=== PATIENT | female | born 1945 | race Caucasian/White ===

== ENCOUNTER 2018-12-23 06:08 | Inpatient (IN) ==
--- NOTE | 2018-12-23 06:42 | PROVIDER DOCUMENTATION ---
HPI-General Adult - General Chief Complaint: Generalized Pain Stated Complaint: pain Time Seen by Provider: 12/23/18 06:32 Source: patient Allergies/Adverse Reactions: Patient Allergies Allergy/AdvReac Type Severity Reaction Status Date / Time Sulfa (Sulfonamide Allergy Mild RASH Verified 05/20/15 18:26 Antibiotics) [Sulfa(Sulfonamide Antibiotics)] Home Medications: Home Medication List Medication Instructions Recorded Confirmed Last Taken Type Montelukast [Singulair] 10 mg PO DAILY 04/13/14 09/21/15 09/21/15 05:00 History Clonazepam [Klonopin] 0.5 - 1 tab PO BID PRN PRN 05/20/15 09/21/15 09/21/15 05:00 History 1/2 dose Furosemide [Lasix] 40 mg PO DAILY 05/20/15 09/21/15 09/20/15 05:00 History Potassium Chloride E.r. [Klor-Con] 99 mg PO DAILY 05/20/15 09/21/15 09/21/15 05:00 History Ergocalciferol (Vitamin D2) 50,000 unit PO DIRECTED #0 05/26/15 09/21/15 09/20/15 05:00 Rx [Vitamin D2] Folic Acid 1 mg PO DAILY #0 tablet 05/26/15 09/21/15 09/21/15 05:00 Rx Acetaminophen E.r. [Tylenol 650 mg PO PRN PRN 09/17/15 09/17/15 Unknown History Arthritis] Aclidinium Gilman Inhaler 1 puff INH BID 09/17/15 09/21/15 09/21/15 04:45 History [Tudorza Pressair Inhaler] Albuterol Sulfate [Ventolin Hfa] 18 gm IH PRN PRN 09/17/15 09/17/15 Unknown History Albuterol [Albuterol Neb] 1.25 mg INH 4XDAY 09/17/15 09/21/15 09/21/15 04:45 History Biotin 5 mg PO DAILY 09/17/15 09/21/15 09/21/15 05:00 History Diltiazem HCl [Cartia Xt] 180 mg PO DAILY 09/17/15 09/21/15 09/21/15 05:00 History Iron 325 mg PO DAILY 09/17/15 09/21/15 09/21/15 05:00 History Multivit-Min/FA/Lycopen/Lutein 1 each PO DAILY 09/17/15 09/21/15 09/21/15 05:00 History [Centrum Silver Tablet] Prednisone 5 mg PO QAM 09/17/15 09/21/15 09/21/15 05:00 History Cyanocobalamin (Vitamin B-12) 1,000 mcg IJ DIRECTED 09/21/15 09/21/15 2 Weeks Ago History [Cyanocobalamin Injection] ~09/07/15 - History of Present Illness -Gen Adult Nature of Presenting Problems: arrives via EMS. Pt has had increased aching pain to bilat LE from knees down since yest. She has a hx of arthritis, is on mobic, daily prednisone, and Ultram. She took a dose of Ultram yest pm ~ 1530, but it made her feel light headed. She thinks she may have walked more yest, but no falls nor twists. Daughter says she fell 3 mos ago, has been doing worse since. She has seen Dr Dwyer, Xrays of back, hip, knees are negative, although a measurement of osteoporosis was worse. She did previously see a pants maker, but has stopped that after dx with leukemia, now sees only Dr Zamora. Daughter says weakness in worse, pt does not walk much at all. She had a bedside commode, but past 3 nights has been sleeping in diapers. No fever Location of Pain/Injury: reports: other (see above) Quality of Pain: reports: aching Timing: reports: still present, getting worse Similar Symptoms Previously?: Yes Recently seen or treated by another doctor?: Yes Review of Systems - Adult - REVIEW OF SYSTEMS - ADULT Constitutional: reports: other (increasing weakness) Eyes: reports: no symptoms reported Ears, Nose, Mouth & Throat: reports: no symptoms reported Cardiovascular: reports: no symptoms reported Respiratory: reports: no symptoms reported Gastrointestinal: reports: no symptoms reported Genitourinary: reports: no symptoms reported Musculoskeletal: reports: see HPI Integumentary: reports: no symptoms reported Neurological: reports: no symptoms reported Psychiatric: reports: no symptoms reported Endocrine: reports: no symptoms reported Hematologic/Lymphatic: reports: no symptoms reported Allergic/Immunologic: reports: no symptoms reported Past History - Adult - PAST MEDICAL HISTORY-ADULT Review of Records: reports: Medications Reviewed Major Childhood Illnesses: reports: denies history Cardiovascular: reports: HTN Respiratory: reports: COPD - PRIOR SURGERIES/PROCEDURES Surgical/Procedure History: reports: cholecystectomy, hernia repair, gastric bypass - PRIOR HOSPITALIZATIONS Prior Hospitalizations: reports: for similar symptoms - IMMUNIZATION STATUS Childhood Immunizations: See Nurse Assessment Flu Vaccine: See Nurse Assessment - FAMILY HISTORY Family History: reviewed, not pertinent Physical Exam-General - PHYSICAL EXAM-ADULT Initial Vital Signs Reviewed: Yes - CONSTITUTIONAL General Appearance: appears well, alert, mild distress - EYES Eyes: PERRL/EOMI, pink conjunctivae - HEAD, EARS, NOSE, MOUTH & THROAT HENMT: normocephalic/atraumatic, moist mucous membranes, normal ENT inspection, pharynx normal - NECK Neck: full range of motion, supple, normal inspection - RESPIRATORY Respiratory: lungs clear, normal breath sounds, no pleuratic chest pain, no respiratory distress, no accessory muscle use - CARDIOVASCULAR Cardiovascular: regular rate, rhythm, no edema, no murmur - GASTROINTESTINAL (ABDOMEN) Abdominal Exam: non tender, soft - MUSCULOSKELETAL Back Exam: normal inspection, no CVA tenderness Extremity: tenderness (mod-sv to Bilat hips, knees) - SKIN Integumentary: normal color, normal turgor, warm/dry - NEUROLOGIC Neurologic: 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, grossly normal, no motor/sensory deficits - PSYCHIATRIC Psych/Mental Status: normal mood/affect, normal thought content, normal thought process, oriented x 3 Progress - PLAN OF CARE/RESULTS Progress/Plan/Lab Results: Vital Signs - 8 hr 12/23/18 06:15 Temperature 97.9 F Pulse Rate 91 H Respiratory Rate 20 Blood Pressure 159/88 O2 Sat by Pulse Oximetry 98 Orders Category Date Time Status Nursing- Obtain EKG ONCE Care 12/23/18 06:35 Ordered CHEST-PORTABLE [RAD] Stat Exams 12/23/18 06:35 Ordered CBC WITH DIFF [HEME] Stat Lab 12/23/18 06:33 Uncollected COMPREHENSIVE METABOLIC PANEL [CHEM] Stat Lab 12/23/18 06:34 Uncollected FOLATE Stat Lab 12/23/18 06:34 Uncollected MAGNESIUM [CHEM] Stat Lab 12/23/18 06:34 Uncollected VITAMIN B12 Stat Lab 12/23/18 06:34 Uncollected VITAMIN D 25 HYDROXY Stat Lab 12/23/18 06:34 Uncollected EKG [EKG] Stat Ther 12/23/18 06:35 Ordered Result Diagrams: 12/23/18 06:33 12/23/18 06:33 - REASSESSMENT Reassessment #1 Status: unchanged - CONSULTS/PCP/HOSPITALIST Notification #1 *Consult/PCP/Hospitalist*: Dr Gordon Time Discussed: 08:48 Reason/Comments: will come in to see patient - CHANGE OF SHIFT REPORT (ED Provider) 1 Report Given and Care Transferred to:: Krista Time of Transfer: 07:00 Items Pending: Labs Departure - Departure Date of Disposition Decision: 12/23/18 Time of Disposition Decision: 08:49 DIAGNOSIS: Pneumonia, Failure to thrive in adult Disposition: ADMITTED INPATIENT 09 Certified Medical Emergency: Emergent Condition: Fair Referrals and Follow-Ups: Manolo Zamora MD [Primary Care Provider] - - Critical Care Note This patient required my direct & personal management of CC.: No Attestation - Physician/ JULIANE Attestation Patient care was provided by Advanced Practice Provider:: No The physician spent face to face time with patient:: Yes Advanced Practice Provider documentation review:: Supervising physician onsite and consulted in the evaluation and care of this patient. The physician did have a face to face encounter with the patient.
[2018-12-23 07:09] LABS: ESTIMATED GFR > 60
[2018-12-23 07:12] LABS: AGAP 4; BUN 13 mg/dL (8-22); CHLORIDE 89 mmol/L (98-107); COSMO 268; CREATININE 0.5 mg/dL (0.5-0.9); GLUCOSE 100 mg/dL (70-104); POTASSIUM 4.7 mmol/L (3.5-5.1); SODIUM 134 mmol/L (136-145); TCO2 41 mmol/L (25-35)
[2018-12-23 07:13] LABS: ALB/GLOB RATIO 1.6; ALBUMIN 4.1 g/dL (3.5-5.0); ALKALINE PHOSPHATASE 256 U/L (32-104); CALCIUM 9.7 mg/dL (8.8-10.2); GOT 31 U/L (10-30); GPT 26 U/L (10-36); MAGNESIUM 1.7 mg/dL (1.5-2.7); TOTAL BILIRUBIN 0.44 mg/dL (0.20-1.00); TOTAL PROTEIN 6.7 g/dL (6.3-8.3)
[2018-12-23 07:16] LABS: BASO# 0.02 X1000 (0.0-0.2); BASO% 0.4 % (0.0-0.8); EOS# 0.07 X1000 (0.0-0.7); EOS% 1.4 % (0.0-10.0); HEMATOCRIT 41.3 % (37.0-47.0); HEMOGLOBIN 13.4 g/dL (12.0-16.0); IMM GRAN# 0.03 X1000 (0.0-0.04); IMM GRAN% 0.6 % (0.0-0.5); LYMPH# 0.35 X1000 (1.2-3.4); LYMPH% 7.2 % (20.5-51.1); MCH 34.8 PG (27-31); MCHC 32.4 g/dL (33-37); MCV 107.3 FL (81-99); MONO# 0.77 X1000 (0.11-0.59); MONO% 15.8 % (1.7-9.3); MPV 10.4 FL (7.4-10.4); NEUT# 3.64 X1000 (1.4-6.5); NEUT% 74.6 % (42.2-75.2); PLT 203 X1000 (130-400); RBC 3.85 XMIL (4.2-5.4); RDW 12.9 % (11.5-14.5); WBC 4.88 X1000 (4.8-10.8)
--- NOTE | 2018-12-23 07:37 | Diag Imaging Result Doc PS360 ---
CHEST-PORTABLE - 12/23/2018 INDICATION: weakness COMPARISON: 05/25/2015 FINDINGS: Stable changes of COPD. There is a small area of infiltrate in the right lung base. There is minimal linear atelectasis on the left side as well. Heart size is normal. Pulmonary vascularity is distended. IMPRESSION: COPD. Pulmonary vascular congestion. Small indeterminate infiltrate in the right lung base, which may represent pneumonia. Electronically signed by Brett Robledo 12/23/2018 7:34 AM
[2018-12-23] MEDS ORDERED: TYLENOL ARTHRITIS PO PRN (10:57)
[2018-12-23] MEDS ORDERED: PHENERGAN IV PRN (10:57)
[2018-12-23] MEDS ORDERED: NS 1,000 ML IV ONE (10:57)
[2018-12-23] MEDS ORDERED: VITAMIN D PO SCH (10:57)
[2018-12-23] MEDS ORDERED: SODIUM CHLORIDE 0.9% INJ ONE (10:57)
[2018-12-23] MEDS: DUONEB (A & A) INH SCH ×4 (11:12→23:10)
--- NOTE | 2018-12-23 12:06 | HISTORY AND PHYSICAL ---
HISTORY OF PRESENT ILLNESS: Ms Maryuri Guzman is a 73-year-old lady with a history of multiple medical problems, including chronic respiratory failure with hypoxia on continuous home oxygen at 3 L per nasal cannula, COPD, previous history of tobacco abuse, B-cell leukemia, rheumatoid arthritis, gastroesophageal reflux disease, essential hypertension, and depression, who is followed as an outpatient by Dr. Manolo Zamora. She presented to the ER complaining of nausea/vomiting, increasing shortness of breath, increased work of breathing, and a non- productive cough. Her chest x-ray demonstrated chronic COPD type changes with a small area of infiltrate in the right lung base. There is minimal linear atelectasis on the left side as well. Over the past several weeks, her family reports that Ms. Guzman has become progressively weaker and weaker. She has essentially not been able to do much for herself physically and has essentially been bed-bound over the past several days. She had seen Dr. Dwyer for orthopedic workup. She has persistent pain in her lower back, hips, and legs. She reports that she hurts all over. She is on methotrexate for her underlying rheumatoid. She has had a previous DEXA scan which showed osteoporosis. Upon further questioning, she reported that she has had persistent numbness and tingling in her lower extremities. She has difficulty getting up out of a chair once seated. PAST MEDICAL HISTORY: As above. PAST SURGICAL HISTORY: Cholecystectomy, laparoscopic cholecystectomy, inguinal hernia repair, bilateral tubal ligation, gastric bypass. ALLERGIES: Sulfa. FAMILY HISTORY: Noncontributory. SOCIAL HISTORY: She does not consume alcoholic beverages. She is a former smoker. MEDICATIONS: Albuterol nebulized 4 times a day. Biotin 5 mg daily. Klonopin 0.5 mg b.i.d. Cardia XT 180 mg daily. Lasix 40 mg daily. Mobic 15 mg daily. Methotrexate 2.5 mg 4 tablets weekly. Singulair 10 mg daily. Omeprazole 20 mg daily. Prednisone 5 mg daily. Zoloft 50 mg daily. Tramadol 50 mg q.8 h. p.r.n. pain. REVIEW OF SYSTEMS: She denies any recent weight gain or weight loss.HEENT: She wears glasses. Cardiovascular: No chest pain, palpitations, or anginal equivalents. Pulmonary: No shortness of breath, PND, orthopnea. Gastrointestinal: No reflux, dysphagia, melena, hematochezia, change in bowel habits, or rectal bleeding. Endocrine: No polyuria, no polydipsia. No cold or heat intolerance. Skin: No easy bruisability. Genitourinary: No leakage of urine with coughing or laughing. Neurologic: No migraines or seizures. Psychiatric: She has a history of depression. PHYSICAL EXAMINATION: GENERAL: This is a chronically ill-appearing 73-year-old lady in no apparent distress. VITAL SIGNS: Temperature 97.9 degrees, pulse 91, respirations 20, BP 159/88. HEENT: Fundi with arteriolar wall thickening. Pupils equal, round, reactive to light. Extraocular eye movements intact. NECK: Supple. No masses, JVD, or bruits. CARDIOVASCULAR: Regular rate and rhythm. LUNGS: Distant breath sounds with increased period of expiration. There is poor air movement. ABDOMEN: Soft, nontender, with active bowel sounds. EXTREMITIES: Without edema. SKIN: No palpable purpura. BREAST, GYNECOLOGICAL, AND RECTAL: Exams deferred. NEUROLOGICAL: Strength is 4/5 in the upper and lower extremities bilaterally. She has decreased light touch in the distal extremities bilaterally. ASSESSMENT AND PLAN: 1. Chronic respiratory failure with hypoxia with acute chronic obstructive pulmonary disease exacerbation complicated by possible pneumonia. Chest x-ray shows a possible infiltrate in the right lung base. She is an immunocompromised host. She is on methotrexate for rheumatoid arthritis and is undergoing therapy for the underlying B-cell leukemia. She does not meet obvious criteria for sepsis at this point. Her pulse was 91, but respiratory rate was 20, her blood pressure is good, she does not have a low CO2. I will treat her with supplemental O2, DuoNeb nebulizer treatments, and resume her regular COPD medicines, including Spiriva. We will begin Solu-Medrol 125 mg IV load and then 80 mg IV q.8 h. We will begin antibiotics, including Levaquin and Zosyn which would cover gram-negative bacteria in an immunocompromised host. We will cautiously rehydrated her with normal saline and recheck a PA and lateral chest x-ray in the morning. 2. Hypertension. Blood pressure is stable. We will continue her current regimen of medications. 3. Rheumatoid arthritis. We will continue meloxicam, but I am going to hold the methotrexate, given active ongoing infection. 4. Physical debility. I wonder if she has some sort of peripheral neuropathy. Certainly, she could have some degree of lumbar spinal stenosis. She can have generalized weakness because of the severe COPD and leukemia. We will consult Physical Therapy for evaluation. Potentially she may benefit from short-term rehabilitation. 5. We will begin Lovenox 30 mg subcutaneously daily for deep vein thrombosis prophylax. DISPOSITION: Given her comorbid conditions and clinical presentation, I believe that admission to the hospital is both reasonable and necessary. I anticipate that she will be in the hospital for at least 2 midnights, and I will therefore place her in inpatient status. cc: Meagan Saavedra MD
[2018-12-23] MEDS: SOLU-MEDROL IV SCH ×2 (12:11→20:36)
[2018-12-23] MEDS: LEVAQUIN 500 MG/D5W 500 MG/100 ML IVPB IV SCH ×2 (12:13→14:06)
[2018-12-23] MEDS: LOVENOX SUBQ SCH (12:13)
[2018-12-23] MEDS: ZOSYN 4.5 GM in NS 100 ML IV SCH ×3 (12:16→23:37)
[2018-12-23] MEDS ORDERED: ZOLOFT PO ONE (14:00)
[2018-12-23] MEDS ORDERED: CARDIZEM CD PO ONE (14:00)
[2018-12-23] MEDS: ULTRAM PO PRN (14:04)
[2018-12-23] MEDS: CARDIZEM CD PO SCH (14:04)
[2018-12-23] MEDS: ZOLOFT PO SCH (14:05)
[2018-12-23] MEDS: KLONOPIN PO PRN ×2 (15:57→20:51)
[2018-12-24] MEDS: PRILOSEC PO SCH (06:06)
[2018-12-24] MEDS: SOLU-MEDROL IV SCH (06:06)
--- NOTE | 2018-12-24 06:43 | Diag Imaging Result Doc PS360 ---
EXAM: CHEST-PORTABLE HISTORY: COPD and cough TECHNIQUE: Portable chest single view COMPARISON: 12/23/2018 FINDINGS: The lungs are hyperexpanded except for atelectasis or small infiltrates in the lung bases. The heart is not enlarged. The vessels are mildly distended. No effusion identified. IMPRESSION: Stable chest Electronically signed by Terry Mcallister 12/24/2018 6:41 AM
[2018-12-24 06:53] LABS: EOS# 0.02 X1000 (0.0-0.7); EOS% 0.6 % (0.0-10.0); HEMATOCRIT 39.2 % (37.0-47.0); HEMOGLOBIN 12.7 g/dL (12.0-16.0); LYMPH# 0.18 X1000 (1.2-3.4); LYMPH% 5.4 % (20.5-51.1); MCH 34.3 PG (27-31); MCHC 32.4 g/dL (33-37); MCV 105.9 FL (81-99); MONO# 0.12 X1000 (0.11-0.59); MONO% 3.6 % (1.7-9.3); MPV 10.7 FL (7.4-10.4); NEUT# 3.01 X1000 (1.4-6.5); NEUT% 90.4 % (42.2-75.2); PLT 202 X1000 (130-400); RDW 12.7 % (11.5-14.5); WBC 3.33 X1000 (4.8-10.8)
[2018-12-24 07:12] LABS: AGAP 9; BUN 12 mg/dL (8-22); CALCIUM 9.1 mg/dL (8.8-10.2); CHLORIDE 91 mmol/L (98-107); COSMO 268; CREATININE 0.6 mg/dL (0.5-0.9); ESTIMATED GFR > 60; GLUCOSE 133 mg/dL (70-104); POTASSIUM 4.1 mmol/L (3.5-5.1); SODIUM 133 mmol/L (136-145); TCO2 33 mmol/L (25-35)
[2018-12-24] MEDS: DUONEB (A & A) INH SCH (07:15)
[2018-12-24 07:20] LABS: FREE T4 1.2 ng/dL (0.93-1.70); TSH 0.4 uIUmL (0.27-4.20)
--- NOTE | 2018-12-24 07:59 | EKG Report ---
Test Performed on : 12/23/2018 06:50:25 AM Test Reason : weakness Blood Pressure : / mmHG Vent. Rate : 080 BPM Atrial Rate : 086 BPM P-R Int : 132 ms QRS Dur : 096 ms QT Int : 354 ms P-R-T Axes : 058 -20 057 degrees QTc Int : 408 ms Sinus rhythm. with 2nd degree AV block (Mobitz II). with occasional premature ventricular complexes. Incomplete right bundle branch block Minimal voltage criteria for LVH, may be normal variant Septal infarct , age undetermined Abnormal ECG When compared with ECG of 21-MAY-2015 07:03, Significant changes have occurred Unconfirmed Result
[2018-12-24] MEDS: KLOR-CON PO SCH (08:43)
[2018-12-24] MEDS: ZOSYN 4.5 GM in NS 100 ML IV SCH (08:43)
[2018-12-24] MEDS: ZOLOFT PO SCH (08:43)
[2018-12-24] MEDS: CENTRUM SILVER PO SCH (08:44)
[2018-12-24] MEDS: SINGULAIR PO SCH (08:44)
[2018-12-24] MEDS: CARDIZEM CD PO SCH (08:44)
[2018-12-24] MEDS: FOLIC ACID PO SCH (08:44)
[2018-12-24] MEDS: LASIX PO SCH (08:44)
[2018-12-24] MEDS ORDERED: ALBUTEROL NEB INH SCH (09:00)
[2018-12-24] MEDS ORDERED: IRON 325 MG PO SCH (09:00)
[2018-12-24] MEDS ORDERED: BIOTIN PO SCH (09:00)
[2018-12-24] MEDS: KLONOPIN PO PRN (09:44)
[2018-12-24] MEDS: TUDORZA PRESSAIR INHALER INH SCH ×3 (12:03→20:19)
[2018-12-24] MEDS: LEVAQUIN 500 MG/D5W 500 MG/100 ML IVPB IV SCH (13:49)
[2018-12-24] MEDS: LOVENOX SUBQ SCH (13:49)
[2018-12-24] MEDS: ULTRAM PO PRN (16:01)
[2018-12-24] MEDS: ALBUTEROL NEB INH SCH ×3 (16:29→23:45)
--- NOTE | 2018-12-24 17:45 | HEMO/ONC CONSULTATION ---
DATE: 12/24/2018 REQUESTING PHYSICIAN: Dr. Zamora. REASON FOR CONSULT: Bone pain, evaluate and treat, patient known. HISTORY OF PRESENT ILLNESS: Ms. 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 She is in the hospital currently with chronic respiratory failure, hypoxia, and acute chronic obstructive pulmonary disease exacerbation with possible pneumonia. She has been having some weakness and difficulty getting around ever since she injured her knee a while back. She is physically debilitated. She presented to the emergency room complaining of nausea, vomiting, as well as increased shortness of breath and nonproductive cough. She has now been admitted for the above reasons. She has been bed-bound over the past several days. She has persistent lower back, hip, and leg pain and has seen Dr. Dwyer previously for an orthopedic workup. Currently she is fatigued but has no other acute complaints. PAST MEDICAL HISTORY: 1. Rheumatoid arthritis. 2. COPD. 3. Anxiety. 4. Iron and B12 deficiency. 5. Vitamin D deficiency. 6. Folate deficiency. 7. 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 Disease has been stable. PAST SURGICAL HISTORY: 1. Cholecystectomy. 2. Inguinal hernia repair. 3. Bilateral tubal ligation. 4. Gastric bypass. SOCIAL HISTORY: The patient denies any alcohol or illicit drug use. She is a former smoker. She has a very supportive family and comes to all of her visits with her daughter. FAMILY HISTORY: Negative for any malignancy. REVIEW OF SYSTEMS: Twelve point review of systems negative except for expressed in the HPI. PHYSICAL EXAMINATION: Vital Signs: Temperature 98.1 degrees, heart rate 74, respirations 24, blood pressure 158/89, O2 saturation 97% on 2 L nasal cannula. General: This is a female who is sitting up in her hospital bed. She looks fatigued and she is in the room initially by herself but her then her daughter comes. HEENT: Head normocephalic, atraumatic. Eyes: Pupils equal, round, reactive. Ears, nose, throat, neck, and mouth: Oral mucosa appears to be normal. Gross auditory acuity is intact. Cardiovascular: S1, S2 heard. No murmurs, gallops, rubs appreciated. Respiratory: Coarse breath sounds throughout. Faint wheezing noted. Gastrointestinal: Abdomen is soft. Positive bowel sounds. Musculoskeletal: No obvious bony abnormalities. Extremities: No peripheral edema in the bilateral lower extremities. Neurologic: Patient is alert and oriented. No focal motor deficits. LABS AND STUDIES: White blood cells 3.33, hemoglobin 12.7, platelet count 202,000. ANC 3.01. Sodium 133, potassium 4.1, chloride 91, CO2 33, BUN 12, creatinine 0.6, glucose 133. B12 is 1,615, folate is 38.9, vitamin D is 24.4. ASSESSMENT AND PLAN: 1. Large granular lymphocytic leukemia. Patient's counts are good and stable. We agree with holding methotrexate given her acute illness. However, after acute illness resolves, we would recommend resuming the methotrexate. Her counts have now been stable for several months. We will see the patient back in our office once she is discharged for rehab. 2. Bone pain. This is likely not caused from her large granular lymphocytic leukemia. She has, again, had stable disease. Her counts are adequate and stable. Likely arthritic and may possibly be related to her rheumatoid arthritis. Continue management per the primary team and Orthopedics. 3. Rheumatoid arthritis. Continue with current prednisone dosing. 4. Chronic obstructive pulmonary disease. She has an acute exacerbation at this point. Management per the primary team. Continue IV steroids, nebulizer treatments, O2 support, IV antibiotics. 5. Deconditioning. Agree with rehab placement in order for the patient to regain her strength. director of professional services has already been contacted to help with placement. Thank you for consulting us on Ms. Guzman. We will continue to follow along and adjust our treatment plan per the patient's hospital course. Dictated by EDVIN Cox for April Mcpherson MD cc: MD Meagan Jamison MD I have seen and examined the patient and I agree with the above note which reflects my history, physical, assessment and plan. April ALAMO
[2018-12-24] MEDS ORDERED: PREDNISONE PO ONE (18:46)
[2018-12-25] MEDS: PRILOSEC PO SCH (06:32)
[2018-12-25] MEDS: ULTRAM PO PRN ×2 (06:32→23:42)
[2018-12-25] MEDS: KLONOPIN PO PRN ×2 (07:21→22:19)
[2018-12-25] MEDS: ALBUTEROL NEB INH SCH ×5 (07:39→23:35)
[2018-12-25] MEDS: TUDORZA PRESSAIR INHALER INH SCH ×2 (07:44→19:50)
[2018-12-25] MEDS: KLOR-CON PO SCH (09:31)
[2018-12-25] MEDS: CARDIZEM CD PO SCH (09:31)
[2018-12-25] MEDS: CENTRUM SILVER PO SCH (09:32)
[2018-12-25] MEDS: PREDNISONE PO SCH (09:32)
[2018-12-25] MEDS: LASIX PO SCH (09:32)
[2018-12-25] MEDS: FOLIC ACID PO SCH (09:32)
[2018-12-25] MEDS: ZOLOFT PO SCH (09:32)
[2018-12-25] MEDS: SINGULAIR PO SCH (09:32)
[2018-12-25] MEDS: CITRACAL + D PO SCH ×2 (09:36→20:27)
[2018-12-25] MEDS: LEVAQUIN PO SCH (09:36)
[2018-12-25] MEDS: LOVENOX SUBQ SCH (13:31)
[2018-12-26] MEDS: PRILOSEC PO SCH (06:15)
[2018-12-26] MEDS: KLONOPIN PO PRN (06:37)
[2018-12-26] MEDS: ALBUTEROL NEB INH SCH ×2 (08:16→11:42)
[2018-12-26] MEDS: TUDORZA PRESSAIR INHALER INH SCH (08:17)
[2018-12-26 08:41] LABS: HEMATOCRIT 39.2 % (37.0-47.0); HEMOGLOBIN 13.5 g/dL (12.0-16.0); MCH 36.8 PG (27-31); MCHC 34.4 g/dL (33-37); MCV 106.8 FL (81-99); MPV 11.6 FL (7.4-10.4); RBC 3.67 XMIL (4.2-5.4); RDW 13.6 % (11.5-14.5); WBC 6.34 X1000 (4.8-10.8)
[2018-12-26] MEDS: KLOR-CON PO SCH (09:39)
[2018-12-26] MEDS: PREDNISONE PO SCH (09:40)
[2018-12-26] MEDS: CARDIZEM CD PO SCH (09:40)
[2018-12-26] MEDS: ZOLOFT PO SCH (09:40)
[2018-12-26] MEDS: CENTRUM SILVER PO SCH (09:40)
[2018-12-26] MEDS: LEVAQUIN PO SCH (09:40)
[2018-12-26] MEDS: LASIX PO SCH (09:40)
[2018-12-26] MEDS: SINGULAIR PO SCH (09:41)
[2018-12-26] MEDS: FOLIC ACID PO SCH (09:41)
[2018-12-26] MEDS: CITRACAL + D PO SCH (09:41)
--- NOTE | 2018-12-26 09:41 | Diag Imaging Result Doc PS360 ---
EXAM: CHEST-2 VIEWS INDICATION: COPD, pneumonia TECHNIQUE: 3 views COMPARISON: 12/24/2018 FINDINGS: There is mild linear density at the lung bases similar to the previous studies. It probably represents atelectasis. Superimposed pneumonia is possible No new consolidation is identified. Cardiac silhouette is stable. IMPRESSION: Essentially stable chest. Electronically signed by Jorge Luis Mcneil 12/26/2018 9:38 AM
--- NOTE | 2018-12-26 10:01 | DISCHARGE SUMMARY ---
ADMISSION DATE: 12/23/2018 DISCHARGE DATE: 12/26/2018 FINAL DIAGNOSIS: 1. Chronic respiratory failure with acute exacerbation of chronic obstructive pulmonary disease. 2. Right lower lobe pneumonia. 3. Rheumatoid arthritis, treated with methotrexate. 4. Large granular lymphocytic leukemia, T-cell, associated with rheumatoid arthritis. 5. Diffuse musculoskeletal pain, probably osteoarthritis. 6. Morbid obesity. 7. Hypertension. PRESENT ILLNESS: Mrs. Maryuri Guzman is a 73-year-old white female with a long history of multiple medical problems as outlined above. Approximately 7-10 days ago, she began complaining of severe musculoskeletal pain most prominently in the left knee. She was seen by an orthopedic surgeon, felt she probably had some osteoarthritis complicating her chronic rheumatoid arthritis. She became less and less mobile at home and approximately a week prior to admission stayed in bed most of the time with only occasional trips to the bedside commode. She had been essentially bedbound for 24-36 hours prior to admission, with the daughter changing diapers on her. She presented to the emergency room for evaluation of diffuse pain and generalized weakness. She also complained of some cough, chest congestion, and her chest x-ray showed a potential infiltrate in the right base as well as COPD changes. PHYSICAL EXAMINATION: General: Revealed a chronically ill-appearing elderly woman. Vital signs were remarkable for temperature of 97.9, pulse 91, respirations 20. Neck: Supple with no JVD. Lung: Exam revealed decreased breath sounds with prolonged expiration and reduced air movement. Abdomen: Obese, soft, and nontender, with active bowel sounds. Neurological: Motor strength was 4/5 in the upper and lower extremities bilaterally. HOSPITAL COURSE: She was admitted with a diagnosis of acute exacerbation of COPD with probable pneumonia as well as diffuse musculoskeletal pain of uncertain etiology. She was treated with intravenous antibiotics, intravenous steroids, and continued on 2-3 L of nasal cannula oxygen. She was changed to oral Levaquin and oral prednisone and tolerated this well. Her leukemia was considered as a possible source of bone pain and Dr. Mcpherson, her oncologist, was consulted and she felt these conditions were unrelated and felt that her leukemia was not an issue now. The review of the literature supported treating the rheumatoid arthritis and that most patients with this type of leukemia did not require specific antileukemia treatment. She was seen by Physical Therapy and required help to transfer from bed to chair but was beginning to stand with a walker and have limited weightbearing at the time of discharge. She was accepted by [facility] in [place] for further rehab. I feel her prognosis is reasonably positive. DISCHARGE MEDICATIONS: Citracal Petite tablets 1 twice a day, Levaquin 500 mg daily x3 days, last dose on 12/30/2018. Prednisone 20 mg q.a.m. with breakfast for 3 days, last dose on 12/30/2018. Tudorza inhaler 1 puff twice a day, Tramadol 50 mg q.8 hours as needed for pain, folic acid 1 mg daily, acetaminophen 500 mg 3 times a day with Tramadol as needed for pain, Singulair 10 mg daily, potassium chloride 20 mEq 1 daily, furosemide 40 mg daily, Klonopin 1 mg tablet 1/2 to 1 tablet b.i.d. as needed for anxiety, folic acid 1 mg daily, vitamin D2 50,000 units once weekly, Centrum Silver multivitamin 1 daily, diltiazem XT 180 mg daily, 1/2 strength albuterol nebulizer treatments 4 times a day, meloxicam 15 mg daily, omit every . Omeprazole 20 mg daily, sertraline 50 mg daily, methotrexate 2.5 mg tablets 4 tablets with breakfast, 4 tablets with lunch once a week on , prednisone 5 mg q.a.m. beginning 12/31/2018. She is to return to my office 8-14 days after discharge from rehab. cc: MD Meagan Puentes MD
[2018-12-26] MEDS: LOVENOX SUBQ SCH (11:39)
[2018-12-26 11:47] VITALS: BP 125/68
[2018-12-27] MEDS ORDERED: VITAMIN D PO SCH (15:00)
== END 2018-12-26 14:48 | DRG 190 ==
LOC: SUPCPDRO → ED 06:08 → 3N 09:50
PROVIDERS: ADMIT Internal Medicine; ATTEND Internal Medicine
CPT/HCPCS: 71010; 71020; 71045; 71046; 80048; 80053; 82306; 82607; 82746; 83735; 84439; 84443; 85025; 85027; 85651; 87040; 93005; 94640; 94761; 97110; 97162; 97530; 99285; A9270; J1650; J1956; J2543; J2550; J2930; J7030; J7506; J7512